=== PATIENT | male | born 1950 | race Caucasian/White ===

== ENCOUNTER 2022-11-24 04:20 | Day surgery (SDC) | payer MEDICARE, OTHER, SELFPAY ==
[2022-11-17 14:18] VITALS: BMI 34.4
[2022-11-24 08:45] VITALS: BP 110/59; PULSE 108; RESP 18; TEMP 36.4; O2SAT 99; BMI 33.6
[2022-11-24] MEDS: LACTATED RINGERS 1,000 ML 150 ML IV CONT (08:59)
[2022-11-24 09:01] LABS: Glucose Point of Care 93 mg/dl (65-105)
--- NOTE | 2022-11-24 09:13 | WPDANESEPPF ---
Anes - Initial Pre Proc Eval Procedure: Operation Date: 11/24/22 10:00 Proposed Procedures p Esophagogastroduodenoscopy & Colonoscopy - Federico Angulo MD Date/Time: 11/24/22 09:13 Surgeon: Federico Angulo MD Pre Op Diagnosis: dysphagia,GERD,Vomiting,Abdom.pain,abnor.weightlos Patient Data Age: 72 Gender: M Height: 1.78 m Weight: 106.3 kg Last Vital Signs Temp 36.4 C 11/24/22 08:45 Pulse 108 H 11/24/22 08:45 Resp 18 11/24/22 08:45 BP 110/59 L 11/24/22 08:45 Pulse Ox 99 11/24/22 08:45 O2 Del Method Room Air 11/24/22 08:45 Allergies Allergy/AdvReac Type Severity Reaction Status Date / Time No Known Allergies Allergy Verified 11/24/22 08:42 Home Medications Medication Instructions Recorded Confirmed Type aspirin 81 mg tablet,delayed 81 mg PO DAILY 11/12/22 11/24/22 History release atorvastatin 20 mg tablet 20 mg PO DAILY 11/12/22 11/24/22 History furosemide 20 mg tablet 20 mg PO BID 11/12/22 11/24/22 History losartan 25 mg tablet 50 mg PO DAILY 11/12/22 11/24/22 History metformin 500 mg tablet 500 mg PO BIDWMEAL 11/12/22 11/24/22 History metoprolol succinate 50 mg 50 mg PO DAILY 11/12/22 11/24/22 History tablet,extended release 24 hr multivitamin 1 tablet PO DAILY 11/12/22 11/24/22 History omeprazole 40 mg capsule,delayed 40 mg PO BID #60 caps 11/12/22 11/24/22 Rx release potassium chloride 10 mEq 10 meq PO BID 11/12/22 11/24/22 History capsule,extended release rivaroxaban 20 mg tablet (Xarelto) 20 mg PO QPM 11/12/22 11/24/22 History sucralfate 100 mg/mL oral 1 g (10 mL) PO ACHS 30 days #1,200 11/12/22 11/24/22 Rx suspension (Carafate) mL tamsulosin 0.4 mg capsule 0.4 mg PO DAILY 11/12/22 11/24/22 History sucralfate 1 gram tablet See Rx Instructions .Route 11/24/22 11/24/22 Rx .COMPLEX #120 tabs Laboratory Tests 11/24/22 08:51 POC Capillary Glucose 93 mg/dl (65-105) Patient hx anesthesia problems: none Family hx anesthesia problems: none Results Review: All pre-operative results and documents have been reviewed as part of the pre-operative evaluation. [facility] Past Medical History Medical History Abdominal pain Abnormal digestive system diagnostic imaging Abnormal weight loss CHF (congestive heart failure) Dysphagia GERD (gastroesophageal reflux disease) Hypertension Lymphedema of upper extremity, bilateral Odynophagia RUQ abdominal tenderness Vomiting Social History Social History Smoking packs per day: 1 Smoking cigarettes per day: 20.0 Years smoked: 10 Smoking pack-years: 10.00 Smoking status: Former smoker Tobacco type: cigarettes Alcohol intake: never Substance use: current Substance use type: marijuana Other substance usage details: marijuana vape 1x week Living arrangements: with family Spiritual care concerns: No Anes - Eval Final PreProcedure Day of Procedure 11/24/22 09:13 Patient weight: obese Heart: tachycardia Lungs: decreased breath sounds Airway: Mallampati scale class II Neurological: alert and oriented Last oral intake: >/= 8 hours ASA classification: IV Emergent: no Anesthetic plan: proceed Anesthesia type and monitoring: general GIVS and standard monitoring Results Review: All pre-operative results and documents have been reviewed as part of the pre-operative evaluation. Informed Consent: The patient's anesthetic plan and its attendant risks and benefits were discussed with the patient/family/POA. Questions were solicited and answers provided to the satisfaction of the patient/family/POA.
--- NOTE | 2022-11-24 09:28 | WPDHPUPDATE1 ---
History and Physical Update Update Date/Time: 11/24/22 09:28 History and Physical has been reviewed, including an updated exam of the patient. There are NO changes in the patient's condition. Risks, benefits, and alternatives have been discussed and questions answered. Patient agrees to proceed with procedure.
--- NOTE | 2022-11-24 10:02 | SUR.OPER ---
EGD ended 953 colonoscopy started 1001
[2022-11-24 10:16] VITALS: BP 104/78; PULSE 68; RESP 20; O2SAT 97
[2022-11-24 10:26] VITALS: BP 108/62; PULSE 77; RESP 20; O2SAT 99
[2022-11-24 10:36] VITALS: BP 114/75; PULSE 66; RESP 20; O2SAT 98
== END 2022-11-24 10:56 | disposition home or self-care (01) ==
PROVIDERS: PCP Family Medicine; Visit Provider Internal Medicine Gastroenterology
PROC: 0DJ08ZZ Inspection of Upper Intestinal Tract, Via Natural or Artificial Opening Endoscopic (ICD-10-PCS; CPT 43235; principal; 2022-11-24 10:00)
DX: K21.00 Gastro-esophageal reflux disease with esophagitis, without bleeding (principal); K44.9 Diaphragmatic hernia without obstruction or gangrene; K31.84 Gastroparesis; K29.70 Gastritis, unspecified, without bleeding; K31.5 Obstruction of duodenum; K57.30 Diverticulosis of large intestine without perforation or abscess without bleeding; K63.5 Polyp of colon; K64.8 Other hemorrhoids; I11.0 Hypertensive heart disease with heart failure; I50.9 Heart failure, unspecified; Z87.891 Personal history of nicotine dependence; E66.9 Obesity, unspecified; Z68.33 Body mass index [BMI] 33.0-33.9, adult; Z79.82 Long term (current) use of aspirin; Z79.84 Long term (current) use of oral hypoglycemic drugs; Z79.01 Long term (current) use of anticoagulants
CPT/HCPCS: 45380; 43239; 43245; 82948; 88305; 88342; C1726; J2704; J7120

== ENCOUNTER 2022-11-26 07:59 | Outpatient (CLI) | payer MEDICARE, OTHER, SELFPAY ==
--- NOTE | ~2022-11-26 | US_ITS ---
EXAMINATION: US abdomen limited DATE: 11/26/2022 08:57 INDICATION: Right upper quadrant pain TECHNIQUE: Multiple grayscale and Doppler ultrasound images of the abdomen were obtained. COMPARISON: None available FINDINGS: Bowel gas obscures visualization of the pancreas. The visualized portions of the pancreas a re unremarkable. Bowel gas also partially obscures the left hepatic lobe. The visualized portions of liver are unremarkable. No surface nodularity. Normal hepatopetal flow in the main portal vein. A sto ne is present in the nondistended gallbladder. No gallbladder wall thickening or pericholecystic flui d. The normal common bile duct measures 4 mm. There was no sonographic Celaya sign. IMPRESSION: 1. Cholelithiasis. Reviewed, dictated and finalized at location D. IMPRESSION: 1. Cholelithiasis.
== END 2022-11-26 08:00 | disposition home or self-care (01) ==
PROVIDERS: PCP Family Medicine; Visit Provider Nurse Practitioner
DX: R10.811 Right upper quadrant abdominal tenderness (principal); R93.3 Abnormal findings on diagnostic imaging of other parts of digestive tract; K80.20 Calculus of gallbladder without cholecystitis without obstruction
CPT/HCPCS: 76705

== ENCOUNTER 2023-01-04 02:33 | Day surgery (SDC) | payer MEDICARE, OTHER, SELFPAY ==
[2022-12-24 12:30] VITALS: BMI 33.7
[2023-01-04 11:13] VITALS: BP 92/58; PULSE 78; RESP 18; TEMP 36.2; O2SAT 98
[2023-01-04] MEDS: LACTATED RINGERS 1,000 ML 150 ML IV CONT (11:14)
[2023-01-04 11:23] LABS: Glucose Point of Care 97 mg/dl (65-105)
--- NOTE | 2023-01-04 11:53 | PM.HPGS ---
History of Present Illness History of Present Illness Consent: Risks, benefits, and alternatives have been discussed and questions answered. Patient agrees to proceed with procedure. Chief complaint: Obstruction of duodenum,Ulcer of esophagus Narrative: Zachary Adamson is a 72 year old male with n/v, EGD last month showed duodenal stricture due to ulcer, biopsies benign, this was dilated up to 15 mm balloon. Already on ppi Review of Systems Constitutional: Constitutional: Denies headache(s) and Denies weakness Eyes: Eyes: Denies blurry vision ENT: Reports Normal hearing present, Denies headache(s) and Denies neck pain Cardiovascular: Cardiovascular: Denies chest pain and Denies dyspnea Respiratory: Respiratory: Denies dyspnea Gastrointestinal: Gastrointestinal: Reports no additional gastrointestinal complaints Genitourinary: Genitourinary: Denies dysuria Musculoskeletal: Musculoskeletal: Denies neck pain Integumentary/Breasts: Skin/Breast: Denies dry skin Neurologic: Reports Normal hearing present, Denies headache(s) and Denies weakness Psychiatric: Psychiatric: Denies anxiety Endocrine: Endocrine: Denies change in body appearance Hematologic/Lymphatic: Hematologic/Lymphatic: Denies easy bleeding Allergic/Immunologic: Allergic/Immunologic: Denies urticaria PMFSH Past Medical History Medical History (Updated 01/04/23 @ 11:55 by Federico Angulo MD) Abdominal pain Abnormal digestive system diagnostic imaging Abnormal weight loss CHF (congestive heart failure) Duodenal stricture Dysphagia GERD (gastroesophageal reflux disease) Hypertension Lymphedema of upper extremity, bilateral Odynophagia Peptic ulcer of duodenum RUQ abdominal tenderness Vomiting Social History Social History Smoking packs per day: 1 Smoking cigarettes per day: 20.0 Years smoked: 10 Smoking pack-years: 10.00 Smoking status: Former smoker Tobacco type: cigarettes Alcohol intake: current Substance use: current Substance use type: marijuana Other substance usage details: MARIJUANA VAPE 1X WEEK Living arrangements: with family Spiritual care concerns: No Meds Home Medications and Allergies Home Medications Medication Instructions Recorded Confirmed Type aspirin 81 mg tablet,delayed 81 mg PO DAILY 11/12/22 12/24/22 History release atorvastatin 20 mg tablet 20 mg PO DAILY 11/12/22 12/24/22 History furosemide 20 mg tablet 20 mg PO BID 11/12/22 12/24/22 History losartan 25 mg tablet 50 mg PO DAILY 11/12/22 12/24/22 History metformin 500 mg tablet 500 mg PO BIDWMEAL 11/12/22 12/24/22 History metoprolol succinate 50 mg 50 mg PO DAILY 11/12/22 01/04/23 History tablet,extended release 24 hr multivitamin 1 tablet PO DAILY 11/12/22 12/24/22 History omeprazole 40 mg capsule,delayed 40 mg PO BID #60 caps 11/12/22 12/24/22 Rx release potassium chloride 10 mEq 10 meq PO BID 11/12/22 12/24/22 History capsule,extended release rivaroxaban 20 mg tablet (Xarelto) 20 mg PO QPM 11/12/22 12/24/22 History tamsulosin 0.4 mg capsule 0.4 mg PO DAILY 11/12/22 12/24/22 History sucralfate 1 gram tablet See Rx Instructions .Route 11/24/22 12/24/22 Rx .COMPLEX #120 tabs Allergies Allergy/AdvReac Type Severity Reaction Status Date / Time No Known Allergies Allergy Verified 01/04/23 11:10 Vital Signs Vital Signs - 24 hr 01/04/23 11:13 Temperature 97.2 F L Pulse Rate 78 Respiratory Rate 18 Blood Pressure 92/58 L Pulse Oximetry 98 Oxygen Delivery Room Air Exam Const: General: comfortable and no acute distress HENMT: Face/Nose/Sinus: Normal nares present Eyes: General: appearance normal, both eyes and all related structures Neck: Neck: no JVD Resp: Auscultation: rhonchi Cardio: Rate: regular rate Rhythm: regular rhythm GI: Inspection: non-distended GI Palp: Yes Soft to palpation Skin: General skin exam: n
--- NOTE | 2023-01-04 11:59 | WPDANESEPPF ---
Anes - Initial Pre Proc Eval Procedure: Operation Date: 01/04/23 12:30 Proposed Procedures p Esophagogastroduodenoscopy - Federico Angulo MD Date/Time: 01/04/23 11:59 Surgeon: Federico Angulo MD Pre Op Diagnosis: Obstruction of duodenum,Ulcer of esophagus Patient Data Age: 72 Gender: M Height: 1.78 m Weight: 98.6 kg Last Vital Signs Temp 97.2 F L 01/04/23 11:13 Pulse 78 01/04/23 11:13 Resp 18 01/04/23 11:13 BP 92/58 L 01/04/23 11:13 Pulse Ox 98 01/04/23 11:13 O2 Del Method Room Air 01/04/23 11:13 Allergies Allergy/AdvReac Type Severity Reaction Status Date / Time No Known Allergies Allergy Verified 01/04/23 11:10 Home Medications Medication Instructions Recorded Confirmed Type aspirin 81 mg tablet,delayed 81 mg PO DAILY 11/12/22 12/24/22 History release atorvastatin 20 mg tablet 20 mg PO DAILY 11/12/22 12/24/22 History furosemide 20 mg tablet 20 mg PO BID 11/12/22 12/24/22 History losartan 25 mg tablet 50 mg PO DAILY 11/12/22 12/24/22 History metformin 500 mg tablet 500 mg PO BIDWMEAL 11/12/22 12/24/22 History metoprolol succinate 50 mg 50 mg PO DAILY 11/12/22 01/04/23 History tablet,extended release 24 hr multivitamin 1 tablet PO DAILY 11/12/22 12/24/22 History omeprazole 40 mg capsule,delayed 40 mg PO BID #60 caps 11/12/22 12/24/22 Rx release potassium chloride 10 mEq 10 meq PO BID 11/12/22 12/24/22 History capsule,extended release rivaroxaban 20 mg tablet (Xarelto) 20 mg PO QPM 11/12/22 12/24/22 History tamsulosin 0.4 mg capsule 0.4 mg PO DAILY 11/12/22 12/24/22 History sucralfate 1 gram tablet See Rx Instructions .Route 11/24/22 12/24/22 Rx .COMPLEX #120 tabs Laboratory Tests 01/04/23 11:15 POC Capillary Glucose 97 mg/dl (65-105) Patient hx anesthesia problems: none Family hx anesthesia problems: none Results Review: All pre-operative results and documents have been reviewed as part of the pre-operative evaluation. [facility] Past Medical History Medical History (Updated 01/04/23 @ 11:55 by Federico Angulo MD) Abdominal pain Abnormal digestive system diagnostic imaging Abnormal weight loss CHF (congestive heart failure) Duodenal stricture Dysphagia GERD (gastroesophageal reflux disease) Hypertension Lymphedema of upper extremity, bilateral Odynophagia Peptic ulcer of duodenum RUQ abdominal tenderness Vomiting Social History Social History Smoking packs per day: 1 Smoking cigarettes per day: 20.0 Years smoked: 10 Smoking pack-years: 10.00 Smoking status: Former smoker Tobacco type: cigarettes Alcohol intake: current Substance use: current Substance use type: marijuana Other substance usage details: MARIJUANA VAPE 1X WEEK Living arrangements: with family Spiritual care concerns: No Anes - Eval Final PreProcedure Day of Procedure 01/04/23 11:59 Patient weight: obese Heart: regular rate and rhythm Lungs: clear to auscultation Airway: Mallampati scale class II Neurological: alert and oriented Last oral intake: >/= 8 hours ASA classification: III Emergent: no Anesthetic plan: proceed Anesthesia type and monitoring: general GIVS and standard monitoring Results Review: All pre-operative results and documents have been reviewed as part of the pre-operative evaluation. Informed Consent: The patient's anesthetic plan and its attendant risks and benefits were discussed with the patient/family/POA. Questions were solicited and answers provided to the satisfaction of the patient/family/POA.
--- NOTE | 2023-01-04 12:06 | SUR.OPER ---
SUPERVISOR EPOXY FABRICATION used oral suction for excess secretions during procedure.
[2023-01-04 12:16] VITALS: BP 116/90; PULSE 57; RESP 24; O2SAT 67
[2023-01-04 12:26] VITALS: BP 91/52; PULSE 73; RESP 20; O2SAT 93
[2023-01-04] MEDS: ONDANSETRON INJ 4 MG/2 ML VIAL IV PUSH (12:35)
[2023-01-04 12:36] VITALS: BP 85/55; PULSE 62; RESP 16; O2SAT 94
[2023-01-04 12:46] VITALS: BP 101/53; PULSE 71; RESP 25; O2SAT 95
--- NOTE | 2023-01-04 12:46 | SUR.PHASEII ---
Dr. Brandon aware of BPs. Orders received to finish infusing LR then okay to discharge home.
== END 2023-01-04 13:05 | disposition home or self-care (01) ==
PROVIDERS: PCP Family Medicine; Visit Provider Internal Medicine Gastroenterology
PROC: 0DJ08ZZ Inspection of Upper Intestinal Tract, Via Natural or Artificial Opening Endoscopic (ICD-10-PCS; CPT 43235; principal; 2023-01-04 12:30)
DX: K26.9 Duodenal ulcer, unspecified as acute or chronic, without hemorrhage or perforation (principal); K29.70 Gastritis, unspecified, without bleeding; K31.5 Obstruction of duodenum; K31.84 Gastroparesis; I11.0 Hypertensive heart disease with heart failure; I50.9 Heart failure, unspecified; K21.9 Gastro-esophageal reflux disease without esophagitis; F12.90 Cannabis use, unspecified, uncomplicated; Z87.891 Personal history of nicotine dependence; Z79.82 Long term (current) use of aspirin; Z79.84 Long term (current) use of oral hypoglycemic drugs; E66.9 Obesity, unspecified; Z68.31 Body mass index [BMI] 31.0-31.9, adult
CPT/HCPCS: 43245; 82948; 88305; C1726; J2405; J2704; J7120

== ENCOUNTER 2023-02-16 03:25 | Day surgery (SDC) | payer MEDICARE, OTHER, SELFPAY ==
[2023-02-09 11:13] VITALS: BMI 31.1
--- NOTE | 2023-02-12 11:40 | SUR.PREOP ---
Patient called regarding upcoming procedure. Reviewed preop instructions, appointment times, and procedure prep.
[2023-02-16 11:12] VITALS: BP 90/66; PULSE 71; RESP 20; TEMP 35.6; O2SAT 96; BMI 31.6
[2023-02-16] MEDS: LACTATED RINGERS 1,000 ML 150 ML IV CONT (11:15)
[2023-02-16 11:35] LABS: Glucose Point of Care 82 mg/dl (65-105)
--- NOTE | 2023-02-16 12:04 | PM.HPGS ---
History of Present Illness History of Present Illness Consent: Risks, benefits, and alternatives have been discussed and questions answered. Patient agrees to proceed with procedure. Chief complaint: Unspecified Duodenal Ulcer Narrative: Zachary Adamson is a 72 year old male who came initially with?n/v and already had 2 EGD- last time ~2 months ago, found to have benign duodenal stricture due to ulcer, this was dilated up to 15 mm balloon. Already on ppi and carafate. He has been feeling better Review of Systems Constitutional: Constitutional: Denies headache(s) and Denies weakness Eyes: Eyes: Denies blurry vision ENT: Reports Normal hearing present, Denies headache(s) and Denies neck pain Cardiovascular: Cardiovascular: Denies chest pain and Denies dyspnea Respiratory: Respiratory: Denies dyspnea Gastrointestinal: Gastrointestinal: Reports no additional gastrointestinal complaints Genitourinary: Genitourinary: Denies dysuria Musculoskeletal: Musculoskeletal: Denies neck pain Integumentary/Breasts: Skin/Breast: Denies dry skin Neurologic: Reports Normal hearing present, Denies headache(s) and Denies weakness Psychiatric: Psychiatric: Denies anxiety Endocrine: Endocrine: Denies change in body appearance Hematologic/Lymphatic: Hematologic/Lymphatic: Denies easy bleeding Allergic/Immunologic: Allergic/Immunologic: Denies urticaria PMFSH Past Medical History Medical History (Updated 01/04/23 @ 11:55 by Federico Angulo MD) Abdominal pain Abnormal digestive system diagnostic imaging Abnormal weight loss CHF (congestive heart failure) Duodenal stricture Dysphagia GERD (gastroesophageal reflux disease) Hypertension Lymphedema of upper extremity, bilateral Odynophagia Peptic ulcer of duodenum RUQ abdominal tenderness Vomiting Social History Social History Smoking packs per day: 1 Smoking cigarettes per day: 20.0 Years smoked: 10 Smoking pack-years: 10.00 Smoking status: Former smoker Tobacco type: cigarettes Alcohol intake: current Substance use: current Substance use type: marijuana Other substance usage details: VAPES MARIJUANA 1XWK Living arrangements: with family Spiritual care concerns: No Meds Home Medications and Allergies Home Medications Medication Instructions Recorded Confirmed Type aspirin 81 mg tablet,delayed 81 mg PO DAILY 11/12/22 02/16/23 History release atorvastatin 20 mg tablet 20 mg PO DAILY 11/12/22 02/16/23 History furosemide 20 mg tablet 20 mg PO BID 11/12/22 02/16/23 History losartan 25 mg tablet 50 mg PO DAILY 11/12/22 02/16/23 History metformin 500 mg tablet 500 mg PO BIDWMEAL 11/12/22 02/16/23 History metoprolol succinate 50 mg 50 mg PO DAILY 11/12/22 02/16/23 History tablet,extended release 24 hr multivitamin 1 tablet PO DAILY 11/12/22 02/16/23 History omeprazole 40 mg capsule,delayed 40 mg PO BID #60 caps 11/12/22 02/16/23 Rx release potassium chloride 10 mEq 10 meq PO BID 11/12/22 02/16/23 History capsule,extended release rivaroxaban 20 mg tablet (Xarelto) 20 mg PO QPM 11/12/22 02/16/23 History tamsulosin 0.4 mg capsule 0.4 mg PO DAILY 11/12/22 02/16/23 History sucralfate 1 gram tablet 1 g PO Q6H 90 days #360 tabs 01/29/23 02/16/23 Rx Allergies Allergy/AdvReac Type Severity Reaction Status Date / Time No Known Allergies Allergy Verified 02/16/23 11:08 Vital Signs Vital Signs - 24 hr 02/16/23 11:12 Temperature 96.1 F L Pulse Rate 71 Respiratory Rate 20 Blood Pressure 90/66 L Pulse Oximetry 96 Oxygen Delivery Room Air Exam Const: General: comfortable and no acute distress HENMT: Face/Nose/Sinus: Normal nares present Eyes: General: appearance normal, both eyes and all related structures Neck: Neck: no JVD Resp: Auscultation: clear to auscultation bilaterally Cardio: Rate: regular rate Rhythm: regular rhythm GI: Inspectio
[2023-02-16 12:28] VITALS: BP 112/64; PULSE 81; RESP 20; O2SAT 96
--- NOTE | 2023-02-16 12:28 | WPDANESEPPF ---
Anes - Initial Pre Proc Eval Procedure: Operation Date: 02/16/23 12:30 Proposed Procedures p Esophagogastroduodenoscopy - Federico Angulo MD Date/Time: 02/16/23 12:28 Surgeon: Federico Angulo MD Pre Op Diagnosis: Unspecified Duodenal Ulcer Patient Data Age: 72 Gender: M Height: 1.78 m Weight: 100 kg Last Vital Signs Temp 96.1 F L 02/16/23 11:12 Pulse 71 02/16/23 11:12 Resp 20 02/16/23 11:12 BP 90/66 L 02/16/23 11:12 Pulse Ox 96 02/16/23 11:12 O2 Del Method Room Air 02/16/23 11:12 Allergies Allergy/AdvReac Type Severity Reaction Status Date / Time No Known Allergies Allergy Verified 02/16/23 11:08 Home Medications Medication Instructions Recorded Confirmed Type aspirin 81 mg tablet,delayed 81 mg PO DAILY 11/12/22 02/16/23 History release atorvastatin 20 mg tablet 20 mg PO DAILY 11/12/22 02/16/23 History furosemide 20 mg tablet 20 mg PO BID 11/12/22 02/16/23 History losartan 25 mg tablet 50 mg PO DAILY 11/12/22 02/16/23 History metformin 500 mg tablet 500 mg PO BIDWMEAL 11/12/22 02/16/23 History metoprolol succinate 50 mg 50 mg PO DAILY 11/12/22 02/16/23 History tablet,extended release 24 hr multivitamin 1 tablet PO DAILY 11/12/22 02/16/23 History omeprazole 40 mg capsule,delayed 40 mg PO BID #60 caps 11/12/22 02/16/23 Rx release potassium chloride 10 mEq 10 meq PO BID 11/12/22 02/16/23 History capsule,extended release rivaroxaban 20 mg tablet (Xarelto) 20 mg PO QPM 11/12/22 02/16/23 History tamsulosin 0.4 mg capsule 0.4 mg PO DAILY 11/12/22 02/16/23 History sucralfate 1 gram tablet 1 g PO Q6H 90 days #360 tabs 01/29/23 02/16/23 Rx Laboratory Tests 02/16/23 11:32 POC Capillary Glucose 82 mg/dl (65-105) Patient hx anesthesia problems: none Family hx anesthesia problems: none Results Review: All pre-operative results and documents have been reviewed as part of the pre-operative evaluation. [facility] Past Medical History Medical History (Updated 01/04/23 @ 11:55 by Federico Angulo MD) Abdominal pain Abnormal digestive system diagnostic imaging Abnormal weight loss CHF (congestive heart failure) Duodenal stricture Dysphagia GERD (gastroesophageal reflux disease) Hypertension Lymphedema of upper extremity, bilateral Odynophagia Peptic ulcer of duodenum RUQ abdominal tenderness Vomiting Social History Social History Smoking packs per day: 1 Smoking cigarettes per day: 20.0 Years smoked: 10 Smoking pack-years: 10.00 Smoking status: Former smoker Tobacco type: cigarettes Alcohol intake: current Substance use: current Substance use type: marijuana Other substance usage details: VAPES MARIJUANA 1XWK Living arrangements: with family Spiritual care concerns: No Anes - Eval Final PreProcedure Day of Procedure 02/16/23 12:28 Patient weight: normal Heart: regular rate and rhythm Lungs: clear to auscultation Airway: Mallampati scale class II Neurological: alert and oriented Last oral intake: >/= 8 hours ASA classification: III Emergent: no Anesthetic plan: proceed Anesthesia type and monitoring: general GIVS and standard monitoring Results Review: All pre-operative results and documents have been reviewed as part of the pre-operative evaluation. Informed Consent: The patient's anesthetic plan and its attendant risks and benefits were discussed with the patient/family/POA. Questions were solicited and answers provided to the satisfaction of the patient/family/POA.
[2023-02-16 12:38] VITALS: BP 131/69; PULSE 71; RESP 24; O2SAT 95
[2023-02-16 12:48] VITALS: BP 113/63; PULSE 69; RESP 28; O2SAT 96
--- NOTE | 2023-02-16 13:40 | SUR.PHASEII ---
1228-Pt brought into recovery. Moderate amount of emesis/undigested food. Suction used. VS stable. 1240-Ice chips given. Tolerated well. 1250-Pt states he is feeling better. Ambulated to chair. Pt drank soda and tolerated well. Continued to monitor O2 sat, which remains greater than 95%.
== END 2023-02-16 13:05 | disposition home or self-care (01) ==
PROVIDERS: PCP Family Medicine; Visit Provider Internal Medicine Gastroenterology
PROC: 0DJ08ZZ Inspection of Upper Intestinal Tract, Via Natural or Artificial Opening Endoscopic (ICD-10-PCS; CPT 43235; principal; 2023-02-16 12:30)
DX: K29.80 Duodenitis without bleeding (principal); K31.84 Gastroparesis; K31.5 Obstruction of duodenum; K21.9 Gastro-esophageal reflux disease without esophagitis; I11.0 Hypertensive heart disease with heart failure; I50.9 Heart failure, unspecified; Z87.891 Personal history of nicotine dependence; F12.90 Cannabis use, unspecified, uncomplicated; Z79.82 Long term (current) use of aspirin; Z79.01 Long term (current) use of anticoagulants; Z79.899 Other long term (current) drug therapy
CPT/HCPCS: 43245; 82948; 88305; C1726; J2704; J7120

== ENCOUNTER 2023-05-28 06:45 | Day surgery (SDC) | payer MEDICARE, OTHER, SELFPAY ==
[2023-05-13 12:42] VITALS: BMI 32.3
--- NOTE | 2023-05-18 09:21 | PC.NURSE ---
Spoke with PATIENT regarding medication ELIQUIS. Pt. verbalizes understanding that the last dose of ELIQUIS is to be taken on 05/25/23 and the Endoscopist will instruct them when to restart after the procedure.
--- NOTE | 2023-05-26 14:16 | SUR.PREOP ---
Patient called regarding upcoming procedure. Reviewed preop instructions, appointment times, and procedure prep.
[2023-05-28 09:30] VITALS: BP 108/74; PULSE 70; RESP 20; TEMP 36.4; O2SAT 96
[2023-05-28] MEDS: LACTATED RINGERS 1,000 ML 150 ML IV CONT (09:38)
[2023-05-28 09:41] LABS: Glucose Point of Care 84 mg/dl (65-105)
--- NOTE | 2023-05-28 09:41 | PM.HPGS ---
History of Present Illness History of Present Illness Consent: Risks, benefits, and alternatives have been discussed and questions answered. Patient agrees to proceed with procedure. Chief complaint: Duodenal stenosis Narrative: Zachary Adamson is a 72 year old male here for another egd, came initially with?n/v and already had 3 EGD- last time ~ 02/2023, found to have benign? duodenal stricture due to ulcer with benign biopsies, dilated up to 16.55 mm balloon. Already on ppi and carafate and doing much better. Review of Systems Constitutional: Constitutional: Denies headache(s) and Denies weakness Eyes: Eyes: Denies blurry vision ENT: Reports Normal hearing present, Denies headache(s) and Denies neck pain Cardiovascular: Cardiovascular: Denies chest pain and Denies dyspnea Respiratory: Respiratory: Denies dyspnea Gastrointestinal: Gastrointestinal: Reports no additional gastrointestinal complaints Genitourinary: Genitourinary: Denies dysuria Musculoskeletal: Musculoskeletal: Denies neck pain Integumentary/Breasts: Skin/Breast: Denies dry skin Neurologic: Reports Normal hearing present, Denies headache(s) and Denies weakness Psychiatric: Psychiatric: Denies anxiety Endocrine: Endocrine: Denies change in body appearance Hematologic/Lymphatic: Hematologic/Lymphatic: Denies easy bleeding Allergic/Immunologic: Allergic/Immunologic: Denies urticaria PMFSH Past Medical History Medical History (Updated 01/04/23 @ 11:55 by Federico Angulo MD) Abdominal pain Abnormal digestive system diagnostic imaging Abnormal weight loss CHF (congestive heart failure) Duodenal stricture Dysphagia GERD (gastroesophageal reflux disease) Hypertension Lymphedema of upper extremity, bilateral Odynophagia Peptic ulcer of duodenum RUQ abdominal tenderness Vomiting Social History Social History Smoking packs per day: 1 Smoking cigarettes per day: 20.0 Years smoked: 10 Smoking pack-years: 10.00 Smoking status: Former smoker Tobacco type: cigarettes Alcohol intake: current Substance use: current Substance use type: marijuana Other substance usage details: VAPES MARIJUANA 1XWK Living arrangements: with family Spiritual care concerns: No Meds Home Medications and Allergies Home Medications Medication Instructions Recorded Confirmed Type aspirin 81 mg tablet,delayed 81 mg PO DAILY 11/12/22 05/13/23 History release atorvastatin 20 mg tablet 20 mg PO DAILY 11/12/22 05/13/23 History furosemide 20 mg tablet 20 mg PO BID 11/12/22 05/13/23 History losartan 25 mg tablet 50 mg PO DAILY 11/12/22 05/13/23 History metformin 500 mg tablet 500 mg PO BIDWMEAL 11/12/22 05/13/23 History metoprolol succinate 50 mg 50 mg PO DAILY 11/12/22 05/13/23 History tablet,extended release 24 hr multivitamin 1 tablet PO DAILY 11/12/22 05/13/23 History potassium chloride 10 mEq 10 meq PO BID 11/12/22 05/13/23 History capsule,extended release rivaroxaban 20 mg tablet (Xarelto) 20 mg PO QPM 11/12/22 05/13/23 History tamsulosin 0.4 mg capsule 0.4 mg PO DAILY 11/12/22 05/13/23 History sucralfate 1 gram tablet 1 g PO Q6H 90 days #360 tabs 03/10/23 05/13/23 Rx pantoprazole 40 mg tablet,delayed 40 mg PO BID #60 tabs 04/19/23 05/13/23 Rx release Allergies Allergy/AdvReac Type Severity Reaction Status Date / Time No Known Allergies Allergy Verified 05/28/23 09:29 Vital Signs Vital Signs - 24 hr 05/28/23 09:30 Temperature 97.6 F Pulse Rate 70 Respiratory Rate 20 Blood Pressure 108/74 Pulse Oximetry 96 Oxygen Delivery Room Air Exam Const: General: comfortable and no acute distress HENMT: Face/Nose/Sinus: Normal nares present Eyes: General: appearance normal, both eyes and all related structures Neck: Neck: no JVD Resp: Auscultation: clear to auscultation bilaterally Cardio: Rate: regular rate Rhythm: regular rhythm GI
--- NOTE | 2023-05-28 09:44 | WPDANESEPPF ---
Anes - Initial Pre Proc Eval Procedure: Operation Date: 05/28/23 10:00 Proposed Procedures p Esophagogastroduodenoscopy - Federico Angulo MD Date/Time: 05/28/23 09:44 Surgeon: Federico Angulo MD Pre Op Diagnosis: Duodenal stenosis Patient Data Age: 72 Gender: M Height: 1.78 m Weight: 105.4 kg Last Vital Signs Temp 97.6 F 05/28/23 09:30 Pulse 70 05/28/23 09:30 Resp 20 05/28/23 09:30 BP 108/74 05/28/23 09:30 Pulse Ox 96 05/28/23 09:30 O2 Del Method Room Air 05/28/23 09:30 Allergies Allergy/AdvReac Type Severity Reaction Status Date / Time No Known Allergies Allergy Verified 05/28/23 09:29 Home Medications Medication Instructions Recorded Confirmed Type aspirin 81 mg tablet,delayed 81 mg PO DAILY 11/12/22 05/13/23 History release atorvastatin 20 mg tablet 20 mg PO DAILY 11/12/22 05/13/23 History furosemide 20 mg tablet 20 mg PO BID 11/12/22 05/13/23 History losartan 25 mg tablet 50 mg PO DAILY 11/12/22 05/13/23 History metformin 500 mg tablet 500 mg PO BIDWMEAL 11/12/22 05/13/23 History metoprolol succinate 50 mg 50 mg PO DAILY 11/12/22 05/13/23 History tablet,extended release 24 hr multivitamin 1 tablet PO DAILY 11/12/22 05/13/23 History potassium chloride 10 mEq 10 meq PO BID 11/12/22 05/13/23 History capsule,extended release rivaroxaban 20 mg tablet (Xarelto) 20 mg PO QPM 11/12/22 05/13/23 History tamsulosin 0.4 mg capsule 0.4 mg PO DAILY 11/12/22 05/13/23 History sucralfate 1 gram tablet 1 g PO Q6H 90 days #360 tabs 03/10/23 05/13/23 Rx pantoprazole 40 mg tablet,delayed 40 mg PO BID #60 tabs 04/19/23 05/13/23 Rx release Laboratory Tests 05/28/23 09:37 POC Capillary Glucose 84 mg/dl (65-105) Patient hx anesthesia problems: none Family hx anesthesia problems: none Results Review: All pre-operative results and documents have been reviewed as part of the pre-operative evaluation. [facility] Past Medical History Medical History (Updated 01/04/23 @ 11:55 by Federico Angulo MD) Abdominal pain Abnormal digestive system diagnostic imaging Abnormal weight loss CHF (congestive heart failure) Duodenal stricture Dysphagia GERD (gastroesophageal reflux disease) Hypertension Lymphedema of upper extremity, bilateral Odynophagia Peptic ulcer of duodenum RUQ abdominal tenderness Vomiting Social History Social History Smoking packs per day: 1 Smoking cigarettes per day: 20.0 Years smoked: 10 Smoking pack-years: 10.00 Smoking status: Former smoker Tobacco type: cigarettes Alcohol intake: current Substance use: current Substance use type: marijuana Other substance usage details: VAPES MARIJUANA [id number] Living arrangements: with family Spiritual care concerns: No Anes - Eval Final PreProcedure Day of Procedure 05/28/23 09:44 Patient weight: obese Heart: regular rate and rhythm Lungs: clear to auscultation Airway: Mallampati scale class III Neurological: alert and oriented Last oral intake: >/= 8 hours ASA classification: III Emergent: no Anesthetic plan: proceed Anesthesia type and monitoring: general GIVS and standard monitoring Results Review: All pre-operative results and documents have been reviewed as part of the pre-operative evaluation. Informed Consent: The patient's anesthetic plan and its attendant risks and benefits were discussed with the patient/family/POA. Questions were solicited and answers provided to the satisfaction of the patient/family/POA.
[2023-05-28 10:05] VITALS: BP 108/70; PULSE 64; RESP 23; O2SAT 100
[2023-05-28 10:15] VITALS: BP 111/73; PULSE 73; RESP 30; O2SAT 98
[2023-05-28 10:25] VITALS: BP 116/80; PULSE 66; RESP 19; O2SAT 95
== END 2023-05-28 10:27 | disposition home or self-care (01) ==
PROVIDERS: PCP Family Medicine; Visit Provider Internal Medicine Gastroenterology
PROC: 0DJ08ZZ Inspection of Upper Intestinal Tract, Via Natural or Artificial Opening Endoscopic (ICD-10-PCS; CPT 43235; principal; 2023-05-28 10:00)
DX: K31.5 Obstruction of duodenum (principal); K44.9 Diaphragmatic hernia without obstruction or gangrene; I11.0 Hypertensive heart disease with heart failure; I50.9 Heart failure, unspecified; K21.9 Gastro-esophageal reflux disease without esophagitis; Z87.11 Personal history of peptic ulcer disease; Z79.82 Long term (current) use of aspirin; Z79.84 Long term (current) use of oral hypoglycemic drugs; Z79.01 Long term (current) use of anticoagulants; Z87.891 Personal history of nicotine dependence; E66.9 Obesity, unspecified; Z68.33 Body mass index [BMI] 33.0-33.9, adult; F12.90 Cannabis use, unspecified, uncomplicated
CPT/HCPCS: 43245; 82948; C1726; J2001; J2704; J7120